=== PATIENT | male | born 1965 | race Caucasian/White ===

== ENCOUNTER 2024-09-06 13:26 | Inpatient (IN) | payer MEDICARE ==
[~2024-09-06 13:26] MED LIST: Iopamidol-370 76% 500 ML MDV (1 ML CHARGE) ONE
[2024-09-06 13:58] LABS: #Basophils 0.03 10x3/uL (0.0-0.2); %Basophils 0.2 % (0.0-1.0); %Eosinophils 0.3 % (0.0-10.0); %Lymphocytes 6.9 % (21.0-51.0); %Monocytes 7.4 % (0.0-10.0); %Neutrophils 84.8 % (42.0-75.0); Hematocrit 38.5 % (42.0-52.0); Hemoglobin 11.8 g/dL (14.0-18.0); Mean Corpuscular HGB CONC 30.6 g/dL (32.0-36.0); Mean Corpuscular Hemoglobin 25.5 pg (27.0-31.0); Mean Corpuscular Volume 83.3 fL (78.0-98.0); Platelet Count 214 10x3/uL (130-400); Red Blood Cell (RBC) Count 4.62 mill/uL (4.70-6.10)
[2024-09-06 14:14] LABS: ALT (SGPT) 34 U/L (Less than 45); AST (SGOT) 25 U/L (11-34); Albumin 3.5 g/dL (3.1-4.5); Alkaline Phosphatase 119 U/L (40-110); Anion Gap 12 mmol/L (10-20); BUN (Urea Nitrogen) 17 mg/dL (8.4-25.7); Bilirubin, Total 0.3 mg/dL (0.3-1.2); Calc. Creatinine Clearance 0 mL/min (70-130); Calcium 8.7 mg/dL (7.8-10.44); Carbon Dioxide 29 mmol/L (22-29); Chloride 107 mmol/L (98-107); Estimated GFR 73; Globulin 3.2 g/dL (2.4-3.5); Glucose 78 mg/dL (70-105); Potassium 3.9 mmol/L (3.5-5.1); Protein, Total 6.7 g/dL (6.0-8.3); Sodium 144 mmol/L (136-145)
[2024-09-06 14:15] LABS: Prothrombin Time 12.7 sec (12.0-14.7)
[2024-09-06 14:16] LABS: PTT 26.8 sec (22.9-36.1); Troponin I Less than 0.010 ng/mL (< 0.028)
[2024-09-06 15:41] LABS: Acetaminophen Less than 10 mcg/mL (Less than 10); Alcohol Less than 10.0 mg/dL (Less than 10); Salicylate Less than 8.0 mg/dL (Less than 8.0)
[2024-09-06] MEDS ORDERED: Ondansetron ODT 4 MG TAB PO PRN (16:42)
[2024-09-06] MEDS ORDERED: hydrALAZINE 20 MG/ML VIAL SLOW IVP PRN (16:42)
[2024-09-06] MEDS ORDERED: Senokot S 8.6-50 MG TAB PO PRN (16:42)
[2024-09-06] MEDS ORDERED: Ondansetron PF 4 MG/2 ML Vial IVP PRN (16:42)
[2024-09-06] MEDS ORDERED: Bisacodyl 5 MG TAB PO PRN (16:42)
[2024-09-06] MEDS ORDERED: Calcium Carbonate 500 MG ChewTAB PO PRN (16:42)
[2024-09-06] MEDS ORDERED: Ipratropium/Albuterol 3 ML NEB NEB PRN (16:46)
[2024-09-06 17:44] VITALS: BMI 51.2
[2024-09-06] MEDS: Apixaban 5 MG TAB PO SCH (23:22)
[2024-09-06] MEDS: Carbidopa/Levodopa 25-100 mg Tablet PO SCH (23:22)
[2024-09-06] MEDS: Famotidine 20 MG TAB PO SCH (23:22)
[2024-09-06] MEDS: Atorvastatin Calcium 40 MG TAB PO SCH (23:22)
[2024-09-07] MEDS: Tamsulosin HCl 0.4 MG CAP PO SCH (00:27)
[2024-09-07 05:03] LABS: #Basophils 0.04 10x3/uL (0.0-0.2); %Basophils 0.3 % (0.0-1.0); %Eosinophils 0.4 % (0.0-10.0); %Lymphocytes 10.9 % (21.0-51.0); %Monocytes 6.7 % (0.0-10.0); %Neutrophils 81.2 % (42.0-75.0); Hematocrit 35.5 % (42.0-52.0); Hemoglobin 10.8 g/dL (14.0-18.0); Mean Corpuscular HGB CONC 30.4 g/dL (32.0-36.0); Mean Corpuscular Hemoglobin 25.6 pg (27.0-31.0); Mean Corpuscular Volume 84.1 fL (78.0-98.0); Mean Platelet Volume 9.9 fL (7.4-10.4); Platelet Count 206 10x3/uL (130-400); RBC Distribution Width 16.3 % (11.5-14.5); Red Blood Cell (RBC) Count 4.22 mill/uL (4.70-6.10)
[2024-09-07 06:22] LABS: BUN (Urea Nitrogen) 14 mg/dL (8.4-25.7); Calc. Creatinine Clearance 168 mL/min (70-130); Cholesterol 177 mg/dl (< 200 Desired); Estimated GFR 88
[2024-09-07 06:23] LABS: Cardiac Risk 2.5 (Less than 4.5); HDL Cholesterol 70 mg/dL (>60 Neg Risk); LDL Cholesterol, Calculated 92 mg/dL
[2024-09-07 06:24] LABS: Calcium 8.5 mg/dL (7.8-10.44); Chloride 108 mmol/L (98-107); Glucose 83 mg/dL (70-105); Potassium 3.8 mmol/L (3.5-5.1); Sodium 143 mmol/L (136-145)
[2024-09-07 06:25] LABS: Anion Gap 13 mmol/L (10-20); Carbon Dioxide 26 mmol/L (22-29); Triglycerides 75 mg/dL (Less than 150)
[2024-09-07 07:18] LABS: Bilirubin Negative (Negative); Blood, Urine Negative (Negative); Clarity Clear (Clear); Glucose, Urine (Dipstick) Normal (Negative); Ketone, Urine Trace mg/dL (Negative); Leukocyte Negative Leu/uL (Negative); Nitrite Negative (Negative); Protein, Urine (Dipstick) 20 mg/dL (Neg-Trace); Specific Gravity, Urine 1.028 (1.002-1.036); Urobilinogen Normal mg/dL (Less than 2)
[2024-09-07 07:19] LABS: Bacteria/HPF None Seen HPF (None Seen); CAUTI Indications for Culture Dysuria,urgency,freq; RBC/HPF 0-3 HPF (0-3); Squamous Epithelial None Seen HPF (0-3)
[2024-09-07 07:20] LABS: Urine Culture Reflex No No
[2024-09-07] MEDS: Bupropion 150 MG SR.TAB PO SCH (09:19)
[2024-09-07] MEDS: Aspirin 81 mg Enteric Coated Tablet PO SCH (09:19)
[2024-09-07] MEDS: QUEtiapine 300 MG TAB PO SCH (09:19)
[2024-09-07] MEDS: Furosemide 40 MG TAB PO SCH (09:19)
[2024-09-07] MEDS: Pyridostigmine Bromide IR 60 MG TAB PO SCH ×2 (12:49→16:36)
[2024-09-07 13:35] LABS: Amphetamine Not Detected (NotDetected); Barbiturates Screen Not Detected (NotDetected); Benzodiazepine Screen Not Detected (NotDetected); Cocaine Metabolite Screen Not Detected (NotDetected); Methadone Not Detected (NotDetected); Methamphetamine Not Detected (NotDetected); Opiate Screen Not Detected (NotDetected); Oxycodone Screen Not Detected (NotDetected); Phencyclidine (PCP) Not Detected (NotDetected); THC/Cannabinoid Screen Not Detected (NotDetected); Tricyclic Screen Detected (NotDetected)
[2024-09-07] MEDS ORDERED: clonazePAM 1 MG TAB PO PRN (16:22)
[2024-09-07] MEDS: Sacubitril 24MG/Valsartan 26 MG TAB PO SCH (20:00)
[2024-09-07] MEDS: Gabapentin 400 MG CAP PO SCH (20:01)
[2024-09-08 03:57] LABS: #Basophils Less than 0.03 10x3/uL (0.0-0.2); %Basophils 0.3 % (0.0-1.0); %Eosinophils 0.9 % (0.0-10.0); %Lymphocytes 21.2 % (21.0-51.0); %Monocytes 8.2 % (0.0-10.0); %Neutrophils 68.5 % (42.0-75.0); Hematocrit 34.1 % (42.0-52.0); Hemoglobin 10.4 g/dL (14.0-18.0); Mean Corpuscular HGB CONC 30.5 g/dL (32.0-36.0); Mean Corpuscular Hemoglobin 25.8 pg (27.0-31.0); Mean Corpuscular Volume 84.6 fL (78.0-98.0); Mean Platelet Volume 9.1 fL (7.4-10.4); Platelet Count 185 10x3/uL (130-400); RBC Distribution Width 16.2 % (11.5-14.5); Red Blood Cell (RBC) Count 4.03 mill/uL (4.70-6.10)
[2024-09-08 04:13] LABS: Anion Gap 12 mmol/L (10-20); BUN (Urea Nitrogen) 14 mg/dL (8.4-25.7); Calc. Creatinine Clearance 151 mL/min (70-130); Calcium 8.7 mg/dL (7.8-10.44); Carbon Dioxide 27 mmol/L (22-29); Chloride 107 mmol/L (98-107); Estimated GFR 78; Glucose 103 mg/dL (70-105); Potassium 3.6 mmol/L (3.5-5.1); Sodium 142 mmol/L (136-145)
[2024-09-08] MEDS: Pantoprazole 40 MG DR.TAB PO SCH (08:57)
[2024-09-08] MEDS ORDERED: QUEtiapine 300 MG TAB PO SCH (09:00)
[2024-09-08] MEDS ORDERED: BuPROPion XL 150 MG ER.TAB PO SCH (09:00)
[2024-09-08 11:49] LABS: Reference Lab Name LABCORP
[2024-09-08 11:51] LABS: Reference Lab Name LABCORP
[2024-09-09 03:50] LABS: #Basophils 0.03 10x3/uL (0.0-0.2); %Basophils 0.4 % (0.0-1.0); %Eosinophils 1.2 % (0.0-10.0); %Lymphocytes 21.6 % (21.0-51.0); Hematocrit 36.4 % (42.0-52.0); Hemoglobin 11.1 g/dL (14.0-18.0); Mean Corpuscular HGB CONC 30.5 g/dL (32.0-36.0); Mean Corpuscular Hemoglobin 25.7 pg (27.0-31.0); Mean Corpuscular Volume 84.3 fL (78.0-98.0); Mean Platelet Volume 9.2 fL (7.4-10.4); Platelet Count 198 10x3/uL (130-400); RBC Distribution Width 15.9 % (11.5-14.5); Red Blood Cell (RBC) Count 4.32 mill/uL (4.70-6.10)
[2024-09-09 04:09] LABS: Anion Gap 12 mmol/L (10-20); BUN (Urea Nitrogen) 15 mg/dL (8.4-25.7); Calc. Creatinine Clearance 136 mL/min (70-130); Calcium 8.8 mg/dL (7.8-10.44); Carbon Dioxide 27 mmol/L (22-29); Chloride 104 mmol/L (98-107); Estimated GFR 69; Glucose 96 mg/dL (70-105); Potassium 3.7 mmol/L (3.5-5.1); Sodium 139 mmol/L (136-145)
[2024-09-09] MEDS ORDERED: OCTAGAM 10% (10 GM/100 ML VIAL) IVPB SCH (09:00)
[2024-09-09] MEDS: ADMIXTURE FEE CHEMO IVPB SCH (10:11)
[2024-09-09] MEDS: PRIVIGEN IVPB SCH (10:11)
[2024-09-09] MEDS: QUEtiapine 300 MG TAB PO SCH (20:01)
[2024-09-10 04:09] LABS: #Basophils 0.03 10x3/uL (0.0-0.2); %Basophils 0.5 % (0.0-1.0); %Eosinophils 1.6 % (0.0-10.0); %Lymphocytes 20.9 % (21.0-51.0); %Monocytes 8.2 % (0.0-10.0); %Neutrophils 67.9 % (42.0-75.0); Hematocrit 37.1 % (42.0-52.0); Hemoglobin 11.6 g/dL (14.0-18.0); Mean Corpuscular HGB CONC 31.3 g/dL (32.0-36.0); Mean Corpuscular Hemoglobin 25.7 pg (27.0-31.0); Mean Corpuscular Volume 82.3 fL (78.0-98.0); Mean Platelet Volume 9.1 fL (7.4-10.4); Platelet Count 216 10x3/uL (130-400); Red Blood Cell (RBC) Count 4.51 mill/uL (4.70-6.10)
[2024-09-10 04:24] LABS: Anion Gap 11 mmol/L (10-20); BUN (Urea Nitrogen) 17 mg/dL (8.4-25.7); Calc. Creatinine Clearance 142 mL/min (70-130); Calcium 8.6 mg/dL (7.8-10.44); Carbon Dioxide 26 mmol/L (22-29); Chloride 105 mmol/L (98-107); Estimated GFR 72; Glucose 97 mg/dL (70-105); Potassium 3.7 mmol/L (3.5-5.1); Sodium 138 mmol/L (136-145)
[2024-09-10] MEDS: Pyridostigmine Bromide IR 60 MG TAB PO SCH (20:51)
[2024-09-10] MEDS: Tamsulosin HCl 0.4 MG CAP PO SCH (20:51)
[2024-09-10] MEDS: Acetaminophen 325 MG TAB PO PRN (23:50)
[2024-09-11 12:37] LABS: West Nile Virus IgG Ab Negative (Negative); West Nile Virus IgM Ab Negative (Negative)
[2024-09-11] MEDS ORDERED: Albuterol 2.5 MG (3 mL) NEB IPPB PRN (17:27)
[2024-09-11] MEDS: methylPREDNISolone Sod Succ/PF 125 MG/2 ML VIAL IVP SCH (17:47)
[2024-09-11] MEDS ORDERED: Ipratropium/Albuterol 3 ML NEB EZPAP SCH (19:00)
[2024-09-11] MEDS: Albuterol 2.5 MG (3 mL) NEB NEB SCH (20:42)
[2024-09-11] MEDS: Ipratropium/Albuterol 3 ML NEB IPPB SCH (20:47)
[2024-09-11] MEDS: Budesonide 0.5 MG/2 ML NEB INH SCH (20:50)
[2024-09-11] MEDS: Montelukast Sodium 10 mg Tablet PO SCH (21:42)
[2024-09-12 12:28] LABS: Thyroglobulin Antibody Less than 12.0 IU/mL (<40 Normal); Thyroid Peroxidase IgG Ab Less than 4.0 IU/mL (<25 Normal)
[2024-09-12] MEDS: Pyridostigmine Bromide IR 60 MG TAB PO SCH (16:55)
[2024-09-13 04:08] LABS: #Basophils 0.03 10x3/uL (0.0-0.2); #Eosinophils Less than 0.03 10x3/uL (0.0-0.7); %Basophils 0.7 % (0.0-1.0); %Eosinophils 0.5 % (0.0-10.0); %Lymphocytes 24.7 % (21.0-51.0); %Monocytes 13.1 % (0.0-10.0); %Neutrophils 60.3 % (42.0-75.0); Hematocrit 36.1 % (42.0-52.0); Mean Corpuscular HGB CONC 30.5 g/dL (32.0-36.0); Mean Corpuscular Hemoglobin 25.5 pg (27.0-31.0); Mean Corpuscular Volume 83.8 fL (78.0-98.0); Mean Platelet Volume 9.3 fL (7.4-10.4); Platelet Count 197 10x3/uL (130-400); RBC Distribution Width 16.5 % (11.5-14.5); Red Blood Cell (RBC) Count 4.31 mill/uL (4.70-6.10)
[2024-09-13 04:25] LABS: Anion Gap 13 mmol/L (10-20); BUN (Urea Nitrogen) 24 mg/dL (8.4-25.7); Calc. Creatinine Clearance 120 mL/min (70-130); Calcium 8.4 mg/dL (7.8-10.44); Carbon Dioxide 25 mmol/L (22-29); Chloride 105 mmol/L (98-107); Estimated GFR 59; Glucose 99 mg/dL (70-105); Potassium 3.7 mmol/L (3.5-5.1); Sodium 139 mmol/L (136-145)
[2024-09-13] MEDS: guaiFENesin/DM ER PO SCH (20:22)
[2024-09-14 04:35] LABS: #Basophils Less than 0.03 10x3/uL (0.0-0.2); #Eosinophils Less than 0.03 10x3/uL (0.0-0.7); %Basophils 0.4 % (0.0-1.0); %Eosinophils 0.2 % (0.0-10.0); %Lymphocytes 24.4 % (21.0-51.0); %Monocytes 11.8 % (0.0-10.0); %Neutrophils 62.6 % (42.0-75.0); Hematocrit 37.1 % (42.0-52.0); Hemoglobin 11.4 g/dL (14.0-18.0); Mean Corpuscular HGB CONC 30.7 g/dL (32.0-36.0); Mean Corpuscular Hemoglobin 25.6 pg (27.0-31.0); Mean Corpuscular Volume 83.2 fL (78.0-98.0); Mean Platelet Volume 9.4 fL (7.4-10.4); Platelet Count 179 10x3/uL (130-400); Red Blood Cell (RBC) Count 4.46 mill/uL (4.70-6.10)
[2024-09-14 04:54] LABS: Anion Gap 10 mmol/L (10-20); BUN (Urea Nitrogen) 23 mg/dL (8.4-25.7); Calc. Creatinine Clearance 110 mL/min (70-130); Calcium 8.4 mg/dL (7.8-10.44); Carbon Dioxide 27 mmol/L (22-29); Chloride 103 mmol/L (98-107); Estimated GFR 53; Glucose 93 mg/dL (70-105); Potassium 3.7 mmol/L (3.5-5.1); Sodium 136 mmol/L (136-145)
[2024-09-14] MEDS ORDERED: Milk Of Magnesia 30 ML UDCUP PO PRN (17:32)
[2024-09-14 21:46] VITALS: BMI 42.4
[2024-09-15 04:30] LABS: Anion Gap 12 mmol/L (10-20); BUN (Urea Nitrogen) 21 mg/dL (8.4-25.7); Calc. Creatinine Clearance 120 mL/min (70-130); Calcium 8.5 mg/dL (7.8-10.44); Carbon Dioxide 25 mmol/L (22-29); Chloride 104 mmol/L (98-107); Estimated GFR 59; Glucose 98 mg/dL (70-105); Magnesium 2.2 mg/dL (1.6-2.6); Sodium 137 mmol/L (136-145)
[2024-09-15 16:02] VITALS: BP 133/86; TEMP 98.5
== END 2024-09-15 17:22 | disposition home health service (06) | DRG 57 ==
LOC: ERS 13:26 → ERHOLD 15:56 → 2SE 19:32 → OBSVTOIN 09-07 13:33
PROVIDERS: ADMIT Internal Medicine; ATTEND Internal Medicine Critical Care Medicine
DX: G70.00 Myasthenia gravis without (acute) exacerbation (principal); G81.92 Hemiplegia, unspecified affecting left dominant side; I13.0 Hypertensive heart and chronic kidney disease with heart failure and stage 1 through stage 4 chronic kidney disease, or unspecified chronic kidney disease; Z68.41 Body mass index [BMI] 40.0-44.9, adult; R47.1 Dysarthria and anarthria; G20.C Parkinsonism, unspecified; N18.9 Chronic kidney disease, unspecified; F31.9 Bipolar disorder, unspecified; R33.9 Retention of urine, unspecified; I48.0 Paroxysmal atrial fibrillation; J44.9 Chronic obstructive pulmonary disease, unspecified; I50.9 Heart failure, unspecified; F39 Unspecified mood [affective] disorder; K21.9 Gastro-esophageal reflux disease without esophagitis; D72.829 Elevated white blood cell count, unspecified; R47.81 Slurred speech; R13.10 Dysphagia, unspecified; E66.9 Obesity, unspecified; Z98.890 Other specified postprocedural states; Z72.0 Tobacco use; Z86.711 Personal history of pulmonary embolism; Z79.01 Long term (current) use of anticoagulants; Z79.899 Other long term (current) drug therapy
CPT/HCPCS: 36415; 36416; 51701; 51798; 70450; 70496; 70498; 70551; 71045; 80048; 80053; 80061; 80306; 80307; 81001; 83519; 83605; 83735; 83880; 84443; 84484; 85025; 85610; 85730; 86376; 86788; 86789; 86800; 87040; 87086; 93005; 93306; 94640; G0378; J1459; J2919; J7620; J7626; Q9967

== ENCOUNTER 2025-02-13 12:43 | Inpatient (IN) | payer MEDICARE, OTHER ==
[2025-02-13 13:50] LABS: #Basophils 0.04 10x3/uL (0.0-0.2); #Eosinophils 0.16 10x3/uL (0.0-0.7); #Monocytes 0.70 10x3/uL (0.11-0.59); #Neutrophils 6.50 10x3/uL (1.40-6.50); %Basophils 0.4 % (0.0-1.0); %Eosinophils 1.8 % (0.0-10.0); %Lymphocytes 18.4 % (21.0-51.0); %Monocytes 7.7 % (0.0-10.0); %Neutrophils 71.3 % (42.0-75.0); Hematocrit 42.7 % (42.0-52.0); Hemoglobin 13.0 g/dL (14.0-18.0); Mean Corpuscular Hemoglobin 25.4 pg (27.0-31.0); Mean Corpuscular Volume 83.4 fL (78.0-98.0); Platelet Count 183 10x3/uL (130-400); Red Blood Cell (RBC) Count 5.12 mill/uL (4.70-6.10); White Blood Cell (WBC) Count 9.12 10x3/uL (4.8-10.8)
[2025-02-13] MEDS ORDERED: Albuterol 2.5 MG (3 mL) NEB ONE ×2 (14:03)
[2025-02-13 14:11] LABS: Anion Gap 14 mmol/L (10-20); BUN (Urea Nitrogen) 14 mg/dL (8.4-25.7); Calc. Creatinine Clearance 0 mL/min (70-130); Carbon Dioxide 26 mmol/L (22-29); Chloride 108 mmol/L (98-107); Potassium 4.2 mmol/L (3.5-5.1); Sodium 144 mmol/L (136-145)
[2025-02-13 14:12] LABS: ALT (SGPT) 23 U/L (Less than 45); AST (SGOT) 26 U/L (11-34); Albumin 3.9 g/dL (3.1-4.5); Alkaline Phosphatase 122 U/L (40-110); Bilirubin, Total 0.5 mg/dL (0.3-1.2); Calcium 9.3 mg/dL (7.8-10.44); Globulin 3.7 g/dL (2.4-3.5); Glucose 80 mg/dL (70-105); Lipase 38 U/L (8-78); Magnesium 1.9 mg/dL (1.6-2.6)
[2025-02-13 14:15] LABS: Troponin I Less than 0.010 ng/mL (< 0.028)
[2025-02-13 14:46] LABS: Bacteria/HPF None Seen HPF (None Seen); CAUTI Indications for Culture Pelvic or flank pain; Glucose, Urine (Dipstick) Normal (Negative); Leukocyte 75 Leu/uL (Negative); Protein, Urine (Dipstick) Negative (Neg-Trace); RBC/HPF 0-3 HPF (0-3); Specific Gravity, Urine 1.010 (1.002-1.036); WBC/HPF 0-3 HPF (0-3)
[2025-02-13 14:51] LABS: Urine Culture Reflex No No
[2025-02-13 19:00] VITALS: BMI 36.9
[2025-02-13] MEDS: Privigen 20 GM, Privigen 10 GM in IV Admixture Fee-Chemo 1 UNITS IVPB SCH (19:00)
[2025-02-13] MEDS: METHYLPREDNISOLONE SOD SUCC IVPB SCH (19:00)
[2025-02-13] MEDS: SODIUM CHLORIDE 0.9% IVPB SCH (19:00)
[2025-02-13] MEDS: Pyridostigmine Bromide IR 60 MG TAB PER TUBE SCH (20:47)
[2025-02-13] MEDS: Sacubitril 24MG/Valsartan 26 MG TAB PER TUBE SCH (20:51)
[2025-02-13] MEDS: Apixaban 5 MG TAB PER TUBE SCH (20:52)
[2025-02-13] MEDS: Famotidine 20 MG TAB PO SCH (20:52)
[2025-02-13] MEDS: QUEtiapine 300 MG TAB PER TUBE SCH (20:52)
[2025-02-14] MEDS: Acetaminophen 325 MG TAB PO PRN (01:59)
[2025-02-14 04:05] LABS: #Basophils Less than 0.03 10x3/uL (0.0-0.2); #Eosinophils Less than 0.03 10x3/uL (0.0-0.7); #Monocytes 0.25 10x3/uL (0.11-0.59); #Neutrophils 7.17 10x3/uL (1.40-6.50); %Basophils 0.1 % (0.0-1.0); %Eosinophils 0.0 % (0.0-10.0); %Lymphocytes 7.7 % (21.0-51.0); %Monocytes 3.1 % (0.0-10.0); %Neutrophils 88.7 % (42.0-75.0); Hematocrit 38.4 % (42.0-52.0); Hemoglobin 11.8 g/dL (14.0-18.0); Mean Corpuscular Hemoglobin 25.3 pg (27.0-31.0); Mean Corpuscular Volume 82.2 fL (78.0-98.0); Platelet Count 156 10x3/uL (130-400); Red Blood Cell (RBC) Count 4.67 mill/uL (4.70-6.10); White Blood Cell (WBC) Count 8.08 10x3/uL (4.8-10.8)
[2025-02-14 04:13] LABS: Anion Gap 14 mmol/L (10-20); BUN (Urea Nitrogen) 16 mg/dL (8.4-25.7); Calc. Creatinine Clearance 156 mL/min (70-130); Calcium 8.8 mg/dL (7.8-10.44); Carbon Dioxide 22 mmol/L (22-29); Chloride 109 mmol/L (98-107); Glucose 131 mg/dL (70-105); Potassium 4.3 mmol/L (3.5-5.1); Sodium 141 mmol/L (136-145)
[2025-02-14] MEDS ORDERED: Enoxaparin 40 MG (0.4 mL) SYRINGE SC SCH (09:00)
[2025-02-14 11:43] VITALS: BMI 36.9
[2025-02-14] MEDS ORDERED: OCTAGAM 10% (10 GM/100 ML VIAL) IVPB SCH (15:00)
[2025-02-14] MEDS: Privigen 20 GM, Privigen 10 GM in IV Admixture Fee-Chemo 1 UNITS IVPB SCH (15:04)
[2025-02-14] MEDS: Methocarbamol 500 MG TAB PER TUBE PRN (18:02)
[2025-02-14] MEDS: Mometasone 100 MCG HFA INHALER (RT USE) INH SCH (18:22)
[2025-02-15 03:50] LABS: #Basophils 0.03 10x3/uL (0.0-0.2); #Eosinophils 0.05 10x3/uL (0.0-0.7); #Monocytes 0.50 10x3/uL (0.11-0.59); #Neutrophils 3.43 10x3/uL (1.40-6.50); %Basophils 0.6 % (0.0-1.0); %Eosinophils 1.0 % (0.0-10.0); %Lymphocytes 22.8 % (21.0-51.0); %Monocytes 9.6 % (0.0-10.0); %Neutrophils 65.6 % (42.0-75.0); Hematocrit 34.9 % (42.0-52.0); Hemoglobin 10.7 g/dL (14.0-18.0); Mean Corpuscular Hemoglobin 25.5 pg (27.0-31.0); Mean Corpuscular Volume 83.1 fL (78.0-98.0); Platelet Count 133 10x3/uL (130-400); Red Blood Cell (RBC) Count 4.20 mill/uL (4.70-6.10); White Blood Cell (WBC) Count 5.22 10x3/uL (4.8-10.8)
[2025-02-15 04:08] LABS: Anion Gap 12 mmol/L (10-20); BUN (Urea Nitrogen) 22 mg/dL (8.4-25.7); Calc. Creatinine Clearance 146 mL/min (70-130); Calcium 8.2 mg/dL (7.8-10.44); Carbon Dioxide 25 mmol/L (22-29); Chloride 109 mmol/L (98-107); Glucose 80 mg/dL (70-105); Potassium 3.5 mmol/L (3.5-5.1); Sodium 142 mmol/L (136-145)
[2025-02-15] MEDS: Furosemide 40 MG TAB PER TUBE SCH (08:29)
[2025-02-15] MEDS: Losartan 25 MG TAB PO SCH (08:30)
[2025-02-15] MEDS: Aspirin 81 mg Enteric Coated Tablet PO SCH (08:31)
[2025-02-15] MEDS: clonazePAM 1 MG TAB PO PRN (21:07)
[2025-02-16 04:01] LABS: #Basophils Less than 0.03 10x3/uL (0.0-0.2); #Eosinophils 0.05 10x3/uL (0.0-0.7); #Monocytes 0.24 10x3/uL (0.11-0.59); #Neutrophils 2.42 10x3/uL (1.40-6.50); %Basophils 0.5 % (0.0-1.0); %Eosinophils 1.3 % (0.0-10.0); %Lymphocytes 30.7 % (21.0-51.0); %Monocytes 6.0 % (0.0-10.0); %Neutrophils 61.0 % (42.0-75.0); Hematocrit 36.4 % (42.0-52.0); Hemoglobin 11.1 g/dL (14.0-18.0); Mean Corpuscular Hemoglobin 25.5 pg (27.0-31.0); Mean Corpuscular Volume 83.7 fL (78.0-98.0); Platelet Count 153 10x3/uL (130-400); Red Blood Cell (RBC) Count 4.35 mill/uL (4.70-6.10); White Blood Cell (WBC) Count 3.97 10x3/uL (4.8-10.8)
[2025-02-16 04:24] LABS: Anion Gap 10 mmol/L (10-20); BUN (Urea Nitrogen) 22 mg/dL (8.4-25.7); Calc. Creatinine Clearance 142 mL/min (70-130); Calcium 8.4 mg/dL (7.8-10.44); Carbon Dioxide 25 mmol/L (22-29); Chloride 105 mmol/L (98-107); Glucose 159 mg/dL (70-105); Potassium 3.4 mmol/L (3.5-5.1); Sodium 137 mmol/L (136-145)
[2025-02-17 03:52] LABS: #Basophils Less than 0.03 10x3/uL (0.0-0.2); #Eosinophils 0.09 10x3/uL (0.0-0.7); #Monocytes 0.64 10x3/uL (0.11-0.59); #Neutrophils 2.87 10x3/uL (1.40-6.50); %Basophils 0.2 % (0.0-1.0); %Eosinophils 1.9 % (0.0-10.0); %Lymphocytes 25.0 % (21.0-51.0); %Monocytes 13.2 % (0.0-10.0); %Neutrophils 59.3 % (42.0-75.0); Hematocrit 36.7 % (42.0-52.0); Hemoglobin 11.2 g/dL (14.0-18.0); Mean Corpuscular Hemoglobin 25.2 pg (27.0-31.0); Mean Corpuscular Volume 82.5 fL (78.0-98.0); Platelet Count 159 10x3/uL (130-400); Red Blood Cell (RBC) Count 4.45 mill/uL (4.70-6.10); White Blood Cell (WBC) Count 4.84 10x3/uL (4.8-10.8)
[2025-02-17 04:15] LABS: Anion Gap 13 mmol/L (10-20); BUN (Urea Nitrogen) 23 mg/dL (8.4-25.7); Calc. Creatinine Clearance 139 mL/min (70-130); Calcium 8.7 mg/dL (7.8-10.44); Carbon Dioxide 26 mmol/L (22-29); Chloride 104 mmol/L (98-107); Glucose 90 mg/dL (70-105); Potassium 3.8 mmol/L (3.5-5.1); Sodium 139 mmol/L (136-145)
[2025-02-17 16:26] VITALS: BP 128/76; TEMP 97.7
[2025-02-17] MEDS: Privigen 20 GM, Privigen 10 GM in IV Admixture Fee-Chemo 1 UNITS IVPB SCH (16:51)
== END 2025-02-17 20:05 | disposition home or self-care (01) | DRG 57 ==
LOC: ERS 12:43 → 2SE 17:04
PROVIDERS: ADMIT Hospitalist; ATTEND Internal Medicine
DX: G70.01 Myasthenia gravis with (acute) exacerbation (principal); I50.22 Chronic systolic (congestive) heart failure; R47.1 Dysarthria and anarthria; R20.0 Anesthesia of skin; F31.9 Bipolar disorder, unspecified; E78.5 Hyperlipidemia, unspecified; I11.0 Hypertensive heart disease with heart failure; J44.9 Chronic obstructive pulmonary disease, unspecified; G20.C Parkinsonism, unspecified; F39 Unspecified mood [affective] disorder; K21.9 Gastro-esophageal reflux disease without esophagitis; Z98.890 Other specified postprocedural states; Z90.49 Acquired absence of other specified parts of digestive tract; Z86.711 Personal history of pulmonary embolism; Z79.82 Long term (current) use of aspirin; Z79.899 Other long term (current) drug therapy
CPT/HCPCS: 36415; 70450; 71045; 80048; 80053; 81001; 83605; 83690; 83735; 84484; 85025; 93005; 94640; 94644; 94664; 96361; 96374; 96375; J1459; J2919; J2930; J7611; J7620

== ENCOUNTER 2025-02-20 22:17 | Emergency (ER) | payer OTHER ==
[2025-02-20 23:36] LABS: #Basophils 0.03 10x3/uL (0.0-0.2); #Eosinophils 0.15 10x3/uL (0.0-0.7); #Monocytes 0.68 10x3/uL (0.11-0.59); #Neutrophils 3.38 10x3/uL (1.40-6.50); %Basophils 0.5 % (0.0-1.0); %Eosinophils 2.6 % (0.0-10.0); %Lymphocytes 25.6 % (21.0-51.0); %Monocytes 11.9 % (0.0-10.0); %Neutrophils 59.2 % (42.0-75.0); Hematocrit 39.1 % (42.0-52.0); Hemoglobin 12.3 g/dL (14.0-18.0); Mean Corpuscular Hemoglobin 25.6 pg (27.0-31.0); Mean Corpuscular Volume 81.5 fL (78.0-98.0); Platelet Count 187 10x3/uL (130-400); Red Blood Cell (RBC) Count 4.80 mill/uL (4.70-6.10); White Blood Cell (WBC) Count 5.71 10x3/uL (4.8-10.8)
[2025-02-20] MEDS ORDERED: Privigen 40 GM in Premix 1 BAG IVPB SCH (23:45)
[2025-02-20 23:46] LABS: ALT (SGPT) 23 U/L (Less than 45); AST (SGOT) 26 U/L (11-34); Albumin 3.4 g/dL (3.1-4.5); Alkaline Phosphatase 106 U/L (40-110); Anion Gap 12 mmol/L (10-20); BUN (Urea Nitrogen) 18 mg/dL (8.4-25.7); Bilirubin, Total 0.3 mg/dL (0.3-1.2); Calc. Creatinine Clearance 0 mL/min (70-130); Calcium 9.2 mg/dL (7.8-10.44); Carbon Dioxide 25 mmol/L (22-29); Chloride 109 mmol/L (98-107); Globulin 4.6 g/dL (2.4-3.5); Glucose 88 mg/dL (70-105); Lipase 25 U/L (8-78); Magnesium 1.8 mg/dL (1.6-2.6); Potassium 4.1 mmol/L (3.5-5.1); Sodium 142 mmol/L (136-145)
== END 2025-02-21 05:26 | disposition short-term general hospital (02) ==
LOC: ERS 22:17
DX: G70.01 Myasthenia gravis with (acute) exacerbation (principal); J44.9 Chronic obstructive pulmonary disease, unspecified; F17.220 Nicotine dependence, chewing tobacco, uncomplicated
CPT/HCPCS: 70450; 80053; 83690; 83735; 84484; 85025; 93005; 96374; 99285; J1459